=== PATIENT | male | born 1935 | race Caucasian/White ===

== ENCOUNTER 2017-09-06 07:41 | Emergency (ER) | END 2017-09-06 10:57 | disposition home or self-care (01) ==

== ENCOUNTER 2017-09-17 14:22 | Emergency (ER) | payer MEDICARE ==
[~2017-09-17] VITALS: Ht 188 cm; Wt 62.6 kg
[~2017-09-17 14:22] MED LIST: AMIO200 PO; ASPI81EC; Ativan0.5 MG PO; Bystolic2.5 MG PO; CARV3.125 PO; CIME400 PO; DEXILANT PO; DIAZ5 PO; DIGO.125 PO; DIGOX125 MCG PO; DOC250 PO; DOCU100 PO; FURO20 PO; FURO40 PO; FURO80 PO; Gas-X80 MG PO; HYDACE5 PO; HYDHCL25 PO; IBUP400 PO; LISI20; LISI20 PO; LISI5 PO; LISINOPRIL PO; LORA1; LORA2 PO; Lopressor 25 mg25 MG PO; METO2.5; METO25 PO; METO25ER PO; METO50 PO; METOLAZONE PO; Miralax17 GM PO; OXYACE5T PO; POTA10T PO; POTCHL10ER PO; PROACE100 PO; SULTRIDS PO; Stool Soft & S1 EACH PO; TAMS.4ER PO; WARF1; WARF4 PO; WARF5 PO; WARF6 PO; [UNRECOGNIZED DRUG - REMARK]
[2017-09-17 16:20] LABS: International Normalized Ratio 2.44; Prothrombin Time Results 26.1 Sec (9.7-11.5)
== END 2017-09-17 17:35 | disposition home or self-care (01) ==
LOC: ER 14:22
PROVIDERS: Emergency Medicine
DX: M80.08XA Age-related osteoporosis with current pathological fracture, vertebra(e), initial encounter for fracture (principal); I11.0 Hypertensive heart disease with heart failure; I50.9 Heart failure, unspecified; Z87.891 Personal history of nicotine dependence; W10.9XXA Fall (on) (from) unspecified stairs and steps, initial encounter; Z88.8 Allergy status to other drugs, medicaments and biological substances; Z79.899 Other long term (current) drug therapy; Z79.891 Long term (current) use of opiate analgesic; Z79.01 Long term (current) use of anticoagulants
CPT/HCPCS: 36415; 70450; 72070; 72125; 81000; 85610; 96374; 96375; 96376; 99284; J1170; J2405; J3010